=== PATIENT | female | born 1955 | race Two or more races ===

== ENCOUNTER 2018-12-31 10:42 | Outpatient (CLI) | payer OTHER | END 2018-12-31 11:45 | disposition home or self-care (01) | LOC: SONOGRAMA 10:42 | DX: E04.1 Nontoxic single thyroid nodule (principal) ==

== ENCOUNTER 2021-02-19 10:36 | Outpatient (CLI) | payer OTHER | END 2021-02-19 10:48 | disposition home or self-care (01) | LOC: SONOGRAMA 10:36 | PROVIDERS: ATTEND Internal Medicine Endocrinology, Diabetes & Metabolism | DX: E04.1 Nontoxic single thyroid nodule (principal) ==

== ENCOUNTER 2021-03-02 12:58 | Outpatient (CLI) | payer OTHER | END 2021-03-02 13:03 | disposition home or self-care (01) | LOC: NUCLEAR 12:58 | PROVIDERS: ATTEND Internal Medicine Endocrinology, Diabetes & Metabolism | DX: M81.0 Age-related osteoporosis without current pathological fracture (principal) ==